=== PATIENT | female | born 1970 | race Caucasian/White ===

== ENCOUNTER 2018-05-30 06:39 | Observation (INO) ==
[2018-05-30] MEDS ORDERED: NS 1,000 ML IV ONE (07:30)
[2018-05-30] MEDS ORDERED: DILAUDID IV ONE ×2 (07:30→08:27)
[2018-05-30] MEDS ORDERED: ZOFRAN IV ONE (07:31)
[2018-05-30 07:33] LABS: URINE SOURCE CLEAN CATCH
[2018-05-30 07:42] LABS: BASO# 0.02 X1000 (0.0-0.2); BASO% 0.2 % (0.0-0.8); EOS# 0.07 X1000 (0.0-0.7); EOS% 0.5 % (0.0-10.0); HEMATOCRIT 38.5 % (37.0-47.0); HEMOGLOBIN 12.5 g/dL (12.0-16.0); IMM GRAN# 0.03 X1000 (0.0-0.04); IMM GRAN% 0.2 % (0.0-0.5); LYMPH% 13.3 % (20.5-51.1); MCH 26.1 PG (27-31); MCHC 32.5 g/dL (33-37); MCV 80.4 FL (81-99); MONO# 0.91 X1000 (0.11-0.59); MONO% 7.1 % (1.7-9.3); MPV 9.3 FL (7.4-10.4); NEUT# 10.01 X1000 (1.4-6.5); NEUT% 78.7 % (42.2-75.2); PLT 401 X1000 (130-400); RBC 4.79 XMIL (4.2-5.4); RDW 13.9 % (11.5-14.5); WBC 12.74 X1000 (4.8-10.8)
[2018-05-30 07:43] LABS: BILIRUBIN URINE NEGATIVE (NEGATIVE); BLOOD URINE MODERATE (NEGATIVE); COLOR YELLOW; GLUCOSE URINE 100 mg/dL (NEGATIVE); KETONE URINE 40 mg/dL (NEGATIVE); LEUKOCYTES URINE NEGATIVE (NEGATIVE); NITRITE URINE NEGATIVE (NEGATIVE); PROTEIN URINE 100 mg/dL (NEGATIVE); SP GRAVITY URINE 1.036; TURBIDITY URINE TURBID (CLEAR); UROBILINOGEN URINE NORMAL (NORMAL)
[2018-05-30 07:50] LABS: AGAP 15; ALB/GLOB RATIO 1.4; ALBUMIN 4.2 g/dL (3.5-5.0); ALKALINE PHOSPHATASE 70 U/L (32-104); BUN 11 mg/dL (8-22); CALCIUM 9.2 mg/dL (8.8-10.2); CHLORIDE 93 mmol/L (98-107); COSMO 280; CREATININE 0.8 mg/dL (0.5-0.9); ESTIMATED GFR > 60; GLUCOSE 218 mg/dL (70-104); GOT 27 U/L (10-30); GPT 25 U/L (10-36); POTASSIUM 3.5 mmol/L (3.5-5.1); SODIUM 137 mmol/L (136-145); TCO2 29 mmol/L (25-35); TOTAL BILIRUBIN 0.46 mg/dL (0.20-1.00); TOTAL PROTEIN 7.2 g/dL (6.3-8.3)
[2018-05-30 08:00] LABS: UR EPITHELIAL CELLS >10 /HPF (<10); URINE BACTERIA NEGATIVE /HPF; URINE RBC TNTC /HPF (<10); URINE WBC <10 /HPF (<10)
[2018-05-30 08:01] LABS: URINE CRYSTALS CYSTINE PRESENT
[2018-05-30] MEDS ORDERED: DILAUDID ONE (08:24)
--- NOTE | 2018-05-30 08:47 | Diag Imaging Result Doc PS360 ---
CT ABD/PELVIS W/IV CONT ONLY - 05/30/2018 INDICATION: post lap daryn. abd pain, absent BS, distension COMPARISON: 04/12/2018 FINDINGS: There is some linear atelectasis in the lung bases. Heart size is normal with no pericardial effusion. There are cholecystectomy clips. No biliary dilation. There are some right renal cysts. The pancreas, spleen, and adrenals are normal. There is severe constipation primarily of the ascending colon. No bowel obstruction or inflammation. There is trace pelvic free fluid. There is an IUD in the uterus in good position. Urinary bladder and rectum are normal. Bones are intact. IMPRESSION: 1. Severe constipation. 2. Trace pelvic free fluid of doubtful significance. Otherwise no complicating features. This exam was performed using automated exposure control, adjustment of mA or kV according to patient size, and/or use of iterative reconstruction technique Electronically signed by Ronnie Veronica 05/30/2018 8:44 AM
[2018-05-30] MEDS ORDERED: DIPRIVAN 1% ONE (10:16)
[2018-05-30] MEDS ORDERED: XYLOCAINE-MPF 2% ONE (10:16)
[2018-05-30] MEDS ORDERED: QUELICIN (DOSE) ONE (10:16)
[2018-05-30] MEDS ORDERED: ROBINUL ONE ×2 (10:16→11:22)
[2018-05-30] MEDS ORDERED: KEFZOL 1 GM/D5W 1 GM/50 ML IVPB ONE (10:26)
[2018-05-30] MEDS ORDERED: OFIRMEV 1000 MG/ISOTONIC SOLN 1,000 MG/100 ML BOTTLE ONE (10:38)
[2018-05-30] MEDS ORDERED: TORADOL ONE (10:57)
[2018-05-30] MEDS ORDERED: ZOFRAN ONE (10:57)
[2018-05-30] MEDS ORDERED: DECADRON ONE (10:57)
[2018-05-30] MEDS ORDERED: PHENERGAN ONE (10:58)
--- NOTE | 2018-05-30 11:13 | PROVIDER DOCUMENTATION ---
This chart was entered by Alethea Coy Scribe, acting as scribe for Jose Francisco Ortiz MD. HPI-General Adult - General Chief Complaint: Post Op Complaint Stated Complaint: POST OP COMPLAINT,NAUSEA,VOMITING Time Seen by Provider: 05/30/18 07:17 Source: patient Allergies/Adverse Reactions: Patient Allergies Allergy/AdvReac Type Severity Reaction Status Date / Time No Known Allergies Allergy Verified 05/26/18 15:35 Home Medications: Home Medication List Medication Instructions Recorded Confirmed Last Taken Type Bisoprolol Fumarate/Hctz 1 each PO DAILY 12/17/16 05/28/18 05/28/18 05:00 History [Bisoprolol-Hctz 2.5-6.25 mg Tb] Cetirizine HCl [Zyrtec] 10 mg PO DAILY 12/17/16 05/28/18 05/27/18 07:30 History Escitalopram Oxalate [Lexapro] 10 mg PO DAILY 12/17/16 05/28/18 05/27/18 07:00 History Omeprazole 40 mg PO DAILY 12/17/16 05/28/18 05/27/18 07:00 History Atorvastatin Calcium [Lipitor] 10 mg PO QHS 05/26/18 05/28/18 05/27/18 21:00 History Ergocalciferol (Vitamin D2) 50,000 unit PO Q7D 05/26/18 05/28/18 05/21/18 07:00 History [Vitamin D2] Levothyroxine Sodium [Synthroid] 50 mcg PO DAILY 05/26/18 05/28/18 05/28/18 05:00 History Lisinopril 2.5 mg PO DAILY 05/26/18 05/28/18 05/27/18 07:00 History Montelukast [Singulair] 10 mg PO DAILY 05/26/18 05/28/18 05/27/18 22:00 History Sitagliptin Phos/Metformin HCl 1 tab PO BID 05/26/18 05/28/18 05/27/18 22:00 History [Janumet Xr 50-1,000 mg Tablet] Hydrocodone/APAP 10 mg/325 mg 1 ea PO Q6H PRN PRN #15 tab 05/28/18 Unknown Rx [[place]-10] - History of Present Illness -Gen Adult Nature of Presenting Problems: 47yof c/o post-op complaint related to cholecystectomy on 05/28/18. She c/o abdominal pain, nausea, vomiting, and no bowel movement since her procedure on 05/28/18. She reports she can drink fluids, but cannot eat solid foods. She reports she has previously had a , thyroid removal, tonsillectomy. She denies diarrhea and sob. The patient's is at bedside. Location of Pain/Injury: reports: abdomen Pain Radiation: reports: no radiation Quality of Pain: reports: other ("pain") Severity: reports: moderate Onset/Duration: reports: 2 days ago Timing: reports: still present, intermittent, constant Context/Activities at Onset: reports: other (post-cholecystectomy) Modifying Factors: improves with: nothing Associated Symptoms: reports: nausea, vomiting. denies: diarrhea, shortness of breath Similar Symptoms Previously?: No Recently seen or treated by another doctor?: No Review of Systems - Adult - REVIEW OF SYSTEMS - ADULT Constitutional: denies: chills, fever Eyes: denies: discharge, dry eyes Ears, Nose, Mouth & Throat: denies: ear discharge, ear pain Cardiovascular: denies: chest pain, palpitations Respiratory: denies: cough, shortness of breath Gastrointestinal: reports: abdominal pain, nausea, vomiting, other (absence of bowel movement). denies: diarrhea Genitourinary: denies: dysuria, hematuria Musculoskeletal: denies: back pain, neck pain Integumentary: reports: no symptoms reported Neurological: denies: dizziness/vertigo, headache/migraines Psychiatric: reports: no symptoms reported Endocrine: reports: no symptoms reported Hematologic/Lymphatic: reports: no symptoms reported Allergic/Immunologic: reports: no symptoms reported All Other Systems: Reviewed and Negative Past History - Adult - PAST MEDICAL HISTORY-ADULT Review of Records: reports: Old Records Reviewed, Nursing Assessment Review, Medications Reviewed Major Childhood Illnesses: reports: denies history Cardiovascular: reports: HTN Genitourinary: reports: kidney disease Endocrine/Immune: reports: Diabetes, thyroid disorder - PRIOR SURGERIES/PROCEDURES Surgical/Procedure History: reports: cholecystectomy, , tonsillectomy, other (thyroidectomy) - IMMUNIZATION STATUS Childhood Immunizations: See Nurse Assessment Flu Vaccine: See Nurse Assessment - FAMILY HISTORY Family History: reviewed, not pertinent - SOCIAL HISTORY Smoking: other (former) Substance Use: denies Living Situation: family Physical Exam-General - PHYSICAL EXAM-ADULT Exam Limited by: obesity Initial Vital Signs Reviewed: Yes - CONSTITUTIONAL General Appearance: alert, moderate distress, obese - EYES Eyes: PERRL/EOMI, pink conjunctivae - NECK Neck: non-tender, supple - RESPIRATORY Respiratory: chest non-tender, lungs clear, normal breath sounds, no pleuratic chest pain, no respiratory distress, no accessory muscle use - CARDIOVASCULAR Cardiovascular: regular rate, rhythm, no murmur - GASTROINTESTINAL (ABDOMEN) Abdominal Exam: distended, tenderness (diffuse), other (no bowel sounds) - MUSCULOSKELETAL Extremity: normal range of motion, non-tender, normal inspection, no pedal edema - SKIN Integumentary: normal color, warm/dry - NEUROLOGIC Neurologic: grossly normal, no motor/sensory deficits - PSYCHIATRIC Psych/Mental Status: normal mood/affect, normal thought content, normal thought process, oriented x 3 Progress - PLAN OF CARE/RESULTS Progress/Plan/Lab Results: Vital Signs - 8 hr 05/30/18 06:42 Temperature 98.2 F Pulse Rate 95 H Respiratory Rate 24 Blood Pressure 160/94 O2 Sat by Pulse Oximetry 93 L Bedside Urine ED: Urine Bedside Start: 05/30/18 07:04 Freq: Status: Active Protocol: Activity Type Activity Date Activity User E-Sign Co-Sign Detail Recorded Client Recorded Date Recorded By Document 05/30/18 07:04 [id number] 05/30/18 07:07 [id number] 05/30/18 07:04 Point of Care [Bedside Point of Care] -Lot # [id number] - Results Negative -Control Line Visible? Yes -Additional Comment exp 2019-09-13 Result Diagrams: 05/30/18 07:17 05/30/18 07:17 - CT/MRI 1 CT Study: Abdomen, Pelvis Impression: Abnormal (FINDINGS: There is some linear atelectasis in the lung bases. Heart size is normal with no pericardial effusion. There are cholecystectomy clips. No biliary dilation. There are some right renal cysts. The pancreas, spleen, and adrenals are normal. There is severe constipation primarily of the ascending colon. No bowel obstruction or inflammation. There is trace pelvic free fluid. There is an IUD in the uterus in good position. Urinary bladder and rectum are normal. Bones are intact. IMPRESSION: 1. Severe constipation. 2. Trace pelvic free fluid of doubtful significance. Otherwise no complicating features.) - CONSULTS/PCP/HOSPITALIST Notification #1 *Consult/PCP/Hospitalist*: Dr. Law Time Discussed: 10:08 Consult Disposition: other (admitted to surgery) Departure - Departure Date of Disposition Decision: 05/30/18 Time of Disposition Decision: 11:08 DIAGNOSIS: Acute abdomen Disposition: ADMITTED INPATIENT 09 Certified Medical Emergency: Emergent Condition: Stable Referrals and Follow-Ups: Gini Estevez MD [Primary Care Provider] - - Critical Care Note This patient required my direct & personal management of CC.: No Attestation - Physician/ DIANNE Attestation Patient care was provided by Advanced Practice Provider:: No The physician spent face to face time with patient:: Yes Advanced Practice Provider documentation review:: Supervising physician onsite and consulted in the evaluation and care of this patient. The physician did have a face to face encounter with the patient. This chart was documented by the indicated scribe, (Alethea Coy Scribe) and accurately reflects the services I performed and decisions made by me, Jose Francisco Ortiz MD, as attested by the provider's signature.
[2018-05-30] MEDS ORDERED: NEOSTIGMINE ONE (11:22)
[2018-05-30] MEDS ORDERED: DEMEROL ONE (11:55)
[2018-05-30 12:06] LABS: URINE SOURCE CATH
[2018-05-30] MEDS ORDERED: D5 1/2 NS + KCL 20 MEQ 1,000 ML ONE (12:19)
[2018-05-30 12:32] LABS: BILIRUBIN URINE NEGATIVE (NEGATIVE); BLOOD URINE NEGATIVE (NEGATIVE); COLOR YELLOW; GLUCOSE URINE 100 mg/dL (NEGATIVE); KETONE URINE 20 mg/dL (NEGATIVE); LEUKOCYTES URINE NEGATIVE (NEGATIVE); NITRITE URINE NEGATIVE (NEGATIVE); PH URINE 6.5; PROTEIN URINE NEGATIVE (NEGATIVE); SP GRAVITY URINE 1.022; TURBIDITY URINE CLEAR (CLEAR); UROBILINOGEN URINE NORMAL (NORMAL)
[2018-05-30 12:33] LABS: UR EPITHELIAL CELLS <10 /HPF (<10); URINE BACTERIA NEGATIVE /HPF; URINE RBC <10 /HPF (<10); URINE WBC <10 /HPF (<10)
[2018-05-30] MEDS ORDERED: MORPHINE IV PRN (12:54)
--- NOTE | 2018-05-30 13:03 | OPERATIVE NOTE ---
PROCEDURE DATE: 05/30/2018 PREOPERATIVE DIAGNOSES: 1. Acute abdomen. 2. Postoperative day 2, laparoscopic cholecystectomy. POSTOPERATIVE DIAGNOSIS: Intra-abdominal bile leak. PRINCIPLE PROCEDURES: Diagnostic laparoscopy with placement of drains right upper quadrant of abdomen. SURGEON: Juana Law MD. ANESTHESIA: General. ESTIMATED BLOOD LOSS: 25 mL. DRAINS: Two #10 flat Sammy-Ruth drain, drain one in the gallbladder fossa and one along the lateral side of the right lobe of the liver. INDICATIONS: Ms. Judi Del Rio is a 47-year-old, white female patient of Dr. Petr Desouza. On Thursday, she underwent a laparoscopic cholecystectomy and was discharged home. An intraoperative cholangiogram was performed at the time of her cholecystectomy and was normal. She presented to our Emergency Department this morning with acute abdomen. Actually her liver function tests were normal, as were her electrolytes. She had a slightly elevated white blood cell count. A CT scan was read as normal, but it was clear that she had an acute abdomen. Diagnostic laparoscopy was recommended. FINDINGS: She had an intra-abdominal bile leak with bile along the right lobe of the liver, in the left upper quadrant of the abdomen and some within the pelvis. No other intra-abdominal pathology or injury was noted. DESCRIPTION OF OPERATION: The patient was brought to the operating room, placed supine, received general anesthesia, was intubated. Her abdomen was prepped and draped within the sterile field. We began the procedure by reopening the 10-mm trocar site just below the umbilicus with a 11-blade scalpel. I used a Veress needle to gain access intra-abdominally and pneumoperitoneum was established. The Veress needle was removed and I placed an 11-mm trocar through this incision into the abdomen. The camera was placed through this port, and the abdomen was explored for injury, there was none. We noted that she had bile intra-abdominally. I placed 3 other trocars. I placed a 10-mm trocar just to the right of the midline and two 5-mm trocars in our midclavicular and anterior axillary lines under direct vision of the camera. I used a grasper and a suction dry cans operator to suck out all the bile and irrigate the area of the gallbladder fossa right lobe of the liver, left upper quadrant of the abdomen and the pelvis. We did position the patient to help us gain exposure to these areas and removed as much bile using suction as possible. We also irrigated these areas and removed the irrigation. I then placed two 10-flat Sammy-Ruth drains, and they were brought out through my 5-mm trocar sites. The most lateral one was placed along the right lobe of the liver and the more medial one was placed in the gallbladder fossa under direct vision of our camera. I secured these #10 flat Sammy-Ruth drains to the skin with 2-0 nylon stitches. They were then hooked to bulb suction. We allowed the pneumoperitoneum to dissipate. I used several [id number] 2-0 Vicryl stitches to reapproximate the fascia below the umbilicus. All skin was closed with 4-0 Monocryl subcuticular stitches. Steri-Strips were applied. She did have a Haro catheter placed prior to surgery. We will leave that in. We did not use an NG tube. She now has 2 NIK drains to bulb suction. She will go to the recovery room and then be hospitalized. cc: Juana Law MD
[2018-05-30] MEDS: NORCO-10 PO PRN ×2 (16:54→23:03)
[2018-05-30] MEDS: ZOSYN 3.375 GM in NS 50 ML IV SCH ×2 (16:54→21:30)
[2018-05-30] MEDS: PHENERGAN IV PRN ×2 (16:54→23:05)
[2018-05-30] MEDS: SODIUM CHLORIDE 0.9% INJ PRN (16:55)
[2018-05-30] MEDS: D5 1/2 NS + KCL 20 MEQ 1,000 ML IV SCH (20:03)
[2018-05-30] MEDS: COLACE PO SCH (21:31)
[2018-05-30] MEDS: PERIDEX MT SCH (21:31)
[2018-05-31] MEDS: D5 1/2 NS + KCL 20 MEQ 1,000 ML IV SCH ×2 (02:05→14:38)
[2018-05-31] MEDS: NORCO-10 PO PRN ×4 (05:12→23:02)
[2018-05-31] MEDS: PHENERGAN IV PRN ×4 (05:12→23:02)
[2018-05-31] MEDS: ZOSYN 3.375 GM in NS 50 ML IV SCH ×4 (05:13→23:02)
[2018-05-31] MEDS: LOVENOX SUBQ SCH (05:13)
[2018-05-31] MEDS: COLACE PO SCH ×2 (08:59→23:02)
[2018-05-31] MEDS: PERIDEX MT SCH ×2 (09:00→23:02)
[2018-05-31] MEDS: SODIUM CHLORIDE 0.9% INJ PRN ×2 (10:54→17:18)
--- NOTE | 2018-05-31 18:54 | PROGRESS NOTE ---
DATE: 05/31/2018 SUBJECTIVE: Ms. Del Rio is now postop day 1 from a diagnostic laparoscopy and placement of drains for a bile leak, postoperative day 2 from a laparoscopic cholecystectomy. OBJECTIVE: She is much more comfortable this morning. She has only a little bit of bile out of her drains, mostly serous fluid. She is tolerating liquids. VITAL SIGNS: Her heart rate 67, blood pressure 157/84, O2 saturation 94%. She is afebrile. She is on IV Zosyn prophylactically. PLAN: We will leave her Sammy-Ruth drains in place. We will advance her diet. We will make sure that her Haro comes out and increase her activity. It seems like her bile leak is quite small and that she may not need ERCP to seal it. cc: Juana Law MD
[2018-05-31] MEDS ORDERED: METFORMIN HCL PO SCH (21:00)
[2018-05-31] MEDS ORDERED: [UNRECOGNIZED DRUG - OTHER] PO SCH (21:00)
[2018-05-31] MEDS ORDERED: SITAGLIPTIN PHOS PO SCH (21:00)
[2018-05-31] MEDS: LIPITOR PO SCH (23:01)
[2018-05-31] MEDS: GLUCOPHAGE XR PO SCH (23:02)
[2018-05-31] MEDS: JANUVIA PO SCH (23:02)
[2018-06-01] MEDS: ZOSYN 3.375 GM in NS 50 ML IV SCH ×4 (03:41→21:50)
[2018-06-01] MEDS: D5 1/2 NS + KCL 20 MEQ 1,000 ML IV SCH ×3 (03:46→17:44)
[2018-06-01] MEDS: NORCO-10 PO PRN ×3 (05:22→18:14)
[2018-06-01] MEDS: PHENERGAN IV PRN ×3 (05:22→18:14)
[2018-06-01] MEDS: PRILOSEC PO SCH (06:41)
[2018-06-01] MEDS: LOVENOX SUBQ SCH (06:42)
[2018-06-01] MEDS: SYNTHROID PO SCH (06:42)
[2018-06-01] MEDS: GLUCOPHAGE XR PO SCH ×2 (10:24→21:50)
[2018-06-01] MEDS: COLACE PO SCH ×2 (10:24→21:50)
[2018-06-01] MEDS: JANUVIA PO SCH ×2 (10:25→21:49)
[2018-06-01] MEDS: ZIAC 2.5/6.25 MG PO SCH (10:26)
[2018-06-01] MEDS: PRINIVIL PO SCH (10:26)
[2018-06-01] MEDS: LEXAPRO PO SCH (10:28)
[2018-06-01] MEDS: PERIDEX MT SCH ×2 (10:28→21:49)
[2018-06-01] MEDS: ZYRTEC PO SCH (10:29)
[2018-06-01] MEDS: SINGULAIR PO SCH (10:29)
--- NOTE | 2018-06-01 10:37 | PROGRESS NOTE ---
DATE: 06/01/2018 SUBJECTIVE: Ms. Del Rio is now postoperative day 4 from a laparoscopic cholecystectomy per Dr. Desouza. On Thursday, I had to take her back to the operating room and drain the bile leak. She has [address] and they do not seem to be draining much bile. There is some serous fluid that is draining; however, this morning, she seems to be more uncomfortable. We did remove her Haro catheter tube. We have advanced her diet to a heart healthy diet. We restarted her home medications. We continue to have her on IV Zosyn prophylactically. OBJECTIVE: Vitals: Her heart rate is 83, blood pressure 146/75, O2 saturation 94%. She is afebrile. She has not had recent labs. ASSESSMENT AND PLAN: We will continue her NIK drains to bulb suction. We will increase her activity. We will continue IV fluids, and see how she takes her diet. We may check some more blood counts tomorrow. cc: Juana Law MD
[2018-06-01] MEDS: SODIUM CHLORIDE 0.9% INJ PRN (11:28)
[2018-06-01] MEDS: LIPITOR PO SCH (21:50)
[2018-06-02] MEDS: PHENERGAN IV PRN ×2 (00:45→07:53)
[2018-06-02] MEDS: SODIUM CHLORIDE 0.9% INJ PRN (00:45)
[2018-06-02] MEDS: NORCO-10 PO PRN ×2 (00:45→07:53)
[2018-06-02] MEDS: ZOSYN 3.375 GM in NS 50 ML IV SCH (04:09)
[2018-06-02] MEDS: LOVENOX SUBQ SCH (06:19)
[2018-06-02] MEDS: PRILOSEC PO SCH (06:19)
[2018-06-02] MEDS: SYNTHROID PO SCH (06:19)
[2018-06-02 07:02] LABS: BASO# 0.02 X1000 (0.0-0.2); BASO% 0.2 % (0.0-0.8); EOS# 0.24 X1000 (0.0-0.7); EOS% 2.3 % (0.0-10.0); HEMATOCRIT 35.1 % (37.0-47.0); HEMOGLOBIN 11.1 g/dL (12.0-16.0); LYMPH# 2.06 X1000 (1.2-3.4); LYMPH% 19.8 % (20.5-51.1); MCH 26.1 PG (27-31); MCHC 31.6 g/dL (33-37); MCV 82.6 FL (81-99); MONO# 0.61 X1000 (0.11-0.59); MONO% 5.9 % (1.7-9.3); MPV 9.2 FL (7.4-10.4); NEUT# 7.47 X1000 (1.4-6.5); NEUT% 71.8 % (42.2-75.2); PLT 362 X1000 (130-400); RBC 4.25 XMIL (4.2-5.4)
[2018-06-02 07:22] LABS: AGAP 12; ALB/GLOB RATIO 1.2; ALBUMIN 3.3 g/dL (3.5-5.0); ALKALINE PHOSPHATASE 62 U/L (32-104); BUN 11 mg/dL (8-22); CALCIUM 8.4 mg/dL (8.8-10.2); CHLORIDE 97 mmol/L (98-107); COSMO 280; CREATININE 0.8 mg/dL (0.5-0.9); ESTIMATED GFR > 60; GLUCOSE 152 mg/dL (70-104); GOT 13 U/L (10-30); GPT 16 U/L (10-36); POTASSIUM 3.8 mmol/L (3.5-5.1); SODIUM 139 mmol/L (136-145); TCO2 30 mmol/L (25-35); TOTAL BILIRUBIN 0.42 mg/dL (0.20-1.00)
[2018-06-02 07:51] VITALS: BP 135/82
[2018-06-02] MEDS: SINGULAIR PO SCH (08:02)
[2018-06-02] MEDS: PRINIVIL PO SCH (08:02)
[2018-06-02] MEDS: COLACE PO SCH (08:03)
[2018-06-02] MEDS: ZYRTEC PO SCH (08:03)
[2018-06-02] MEDS: PERIDEX MT SCH (08:03)
[2018-06-02] MEDS: JANUVIA PO SCH (08:03)
[2018-06-02] MEDS: GLUCOPHAGE XR PO SCH (08:03)
[2018-06-02] MEDS: LEXAPRO PO SCH (08:03)
[2018-06-02] MEDS: ZIAC 2.5/6.25 MG PO SCH (08:04)
--- NOTE | 2018-06-02 09:50 | DISCHARGE SUMMARY ---
ADMISSION DATE: 05/30/2018 DISCHARGE DATE: 06/02/2018 ADMITTING DIAGNOSIS: Acute abdomen, postoperative day 2 laparoscopic cholecystectomy. DISCHARGE DIAGNOSIS: Bile leak, status post laparoscopic cholecystectomy. PRINCIPAL PROCEDURES: Diagnostic laparoscopy with drainage of bile on 05/30/2018. DISCHARGE DISABILITY: Full. DISCHARGE DIET: Heart healthy diet. DISCHARGE MEDICATIONS: She is to return to her home medications. I wrote her pain medicine and Phenergan for nausea. DISCHARGE DISPOSITION: She is to return to see Dr. Desouza this coming Thursday. She has a NIK drain in place. HOSPITAL COURSE: Ms. Judi Del Rio is a 47-year-old overweight white female, patient of Dr. Petr Desouza, who last Thursday underwent a laparoscopic cholecystectomy for GI symptoms. She did have a cholangiogram at the time of surgery, which was essentially normal. 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 A CT scan was performed and was read as essentially normal, but because of her symptoms and abdominal pain, she was taken to the operating room where she underwent a diagnostic laparoscopy and it was noted that she had a bile leak. At the time of surgery, I placed 2 NIK drains and after surgery, she went to the recovery room and then was hospitalized on the [address] [place] [id number] [place]. The NIK drains were able to control what was felt to be a small bile leak. We slowly advanced her diet and as we advanced her diet, her bile leak increased slightly. It was felt safe to discharge her to her home with a 1 NIK. I removed 1 NIK drain prior to her discharge. She still has [address] that is draining bile and it is draining about 100 mL a day. We have chosen not to involve Gastroenterology and placement of a stent because we felt this bile leak may seal on its own. She was placed on IV Zosyn prophylactically. Her white blood cell count at discharge was 10, hematocrit is 35%, electrolytes were within normal limits, BUN of 11, creatinine of 0.8. Liver function tests were essentially normal. She will be taught NIK drain care, and we will discharge her home today, 06/02/2018, with follow-up in our outpatient offices this coming Thursday. She knows to contact us with any problems with her drain or increasing abdominal pain. She is going to be discharged home under the care of her mother, her is out of town. cc: Juana Law MD
== END 2018-06-02 11:23 | disposition home or self-care (01) ==
LOC: ED 06:39 → 4N 06:39
PROVIDERS: ADMIT Surgery; ATTEND Surgery
CPT/HCPCS: 74177; 80053; 81001; 81025; 82150; 82948; 85025; 87040; 94761; 94799; 96365; 96366; 96372; 96374; 96375; 96376; 99285; A9270; G0378; J0131; J0330; J0690; J1100; J1170; J1650; J1885; J2175; J2405; J2543; J2550; J3480; J7030; Q9967; XXXXX

== ENCOUNTER 2018-12-10 05:09 | Inpatient (IN) ==
[2018-12-10] MEDS ORDERED: NS 1,000 ML IV ONE (05:25)
[2018-12-10] MEDS ORDERED: TORADOL IV ONE (05:25)
[2018-12-10] MEDS ORDERED: ZOFRAN IV ONE (05:29)
--- NOTE | 2018-12-10 05:34 | PROVIDER DOCUMENTATION ---
HPI-Abdominal Pain/GI Problem - General Chief Complaint: Flank Pain Stated Complaint: ABD PAIN Time Seen by Provider: 12/10/18 05:26 Source: patient Allergies/Adverse Reactions: Patient Allergies Allergy/AdvReac Type Severity Reaction Status Date / Time No Known Allergies Allergy Verified 05/26/18 15:35 Home Medications: Home Medication List Medication Instructions Recorded Confirmed Last Taken Type Bisoprolol Fumarate/Hctz 1 each PO DAILY 12/17/16 12/10/18 12/09/18 History [Bisoprolol-Hctz 2.5-6.25 mg Tb] Cetirizine HCl [Zyrtec] 10 mg PO DAILY 12/17/16 12/10/18 12/09/18 History Escitalopram Oxalate [Lexapro] 10 mg PO DAILY 12/17/16 12/10/18 12/09/18 History Omeprazole 40 mg PO DAILY 12/17/16 12/10/18 12/09/18 History Atorvastatin Calcium [Lipitor] 10 mg PO QHS 05/26/18 12/10/18 12/09/18 History Levothyroxine Sodium [Synthroid] 50 mcg PO DAILY 05/26/18 12/10/18 12/09/18 History Lisinopril 2.5 mg PO DAILY 05/26/18 12/10/18 12/09/18 History Montelukast [Singulair] 10 mg PO DAILY 05/26/18 12/10/18 12/09/18 History Sitagliptin Phos/Metformin HCl 1 tab PO BID 05/30/18 12/10/18 12/09/18 History [Janumet Xr 50-1,000 mg Tablet] Ergocalciferol (Vitamin D2) 1.25 mg PO Q7D 12/10/18 12/10/18 Unknown History [Drisdol] - History of Present Illness-ABD Nature of Presenting Problems: 48 y/o WF with hx of chronic kidney stones c/o rt flank pain that started last night. She notes that she has had several episodes of vomiting secondary to the flank pain. Abdominal Pain Onset Location: reports: flank (rt sided) Pain Radiation: reports: groin Quality of Pain: reports: aching, sharp Severity in ED: reports: moderate Onset/Duration: reports: 4-6 hours ago Timing: reports: still present Activities at Onset: reports: rest Exposure to sick contacts?: No Modifying Factors: improves with: nothing Associated Symptoms: reports: nausea, vomiting Last BM: 24 hours ago Dark Stools Present?: reports: none noticed Rectal Bleeding: reports: none # of Diarrhea Episodes: 0 Rectal Pain: reports: none # of Vomiting Episodes: 3 Emesis Description: reports: none Bruising or Bleeding Gums?: No Similar Symptoms Previously?: Yes Recently seen or treated by another doctor?: No Review of Systems - Adult - REVIEW OF SYSTEMS - ADULT Constitutional: reports: no symptoms reported, see HPI Eyes: reports: no symptoms reported, see HPI Ears, Nose, Mouth & Throat: reports: no symptoms reported, see HPI Cardiovascular: reports: no symptoms reported, see HPI Respiratory: reports: no symptoms reported, see HPI Gastrointestinal: reports: see HPI, abdominal pain Genitourinary: reports: no symptoms reported, see HPI Musculoskeletal: reports: no symptoms reported, see HPI Integumentary: reports: no symptoms reported, see HPI Neurological: reports: no symptoms reported, see HPI Psychiatric: reports: no symptoms reported, see HPI Endocrine: reports: no symptoms reported, see HPI Hematologic/Lymphatic: reports: no symptoms reported, see HPI Allergic/Immunologic: reports: no symptoms reported, see HPI All Other Systems: Reviewed and Negative Past History - Adult - PAST MEDICAL HISTORY-ADULT Review of Records: reports: Nursing Assessment Review, Medications Reviewed, Social history reviewed & non-contributory. Major Childhood Illnesses: reports: denies history Cardiovascular: reports: HTN Genitourinary: reports: kidney disease Endocrine/Immune: reports: Diabetes, thyroid disorder - PRIOR SURGERIES/PROCEDURES Surgical/Procedure History: reports: cholecystectomy, , tonsillectomy, other (thyroidectomy) - IMMUNIZATION STATUS Childhood Immunizations: See Nurse Assessment Flu Vaccine: See Nurse Assessment - FAMILY HISTORY Family History: reviewed, not pertinent Physical Exam-General - PHYSICAL EXAM-ADULT Initial Vital Signs Reviewed: Yes - CONSTITUTIONAL General Appearance: alert, mild distress - EYES Eyes: PERRL/EOMI - HEAD, EARS, NOSE, MOUTH & THROAT HENMT: normocephalic/atraumatic, moist mucous membranes - NECK Neck: non-tender, full range of motion, supple, normal inspection - RESPIRATORY Respiratory: chest non-tender, lungs clear, normal breath sounds, no pleuratic chest pain, no respiratory distress, no accessory muscle use - CARDIOVASCULAR Cardiovascular: normal peripheral pulses, regular rate, rhythm, no edema, no gallop, no JVD, no murmur - GASTROINTESTINAL (ABDOMEN) Abdominal Exam: normal bowel sounds, soft, no organomegaly, no pulsatile mass, tenderness (rt flank) - LYMPHATIC Lymphatic: no adenopathy - MUSCULOSKELETAL Back Exam: CVA tenderness (rt flank pain) Extremity: normal range of motion, non-tender, normal gait, normal inspection, no pedal edema, no calf tenderness, normal capillary refill - SKIN Integumentary: normal color, normal turgor - NEUROLOGIC Neurologic: processing associate II-XII nml as tested, grossly normal, no motor/sensory deficits - PSYCHIATRIC Psych/Mental Status: normal mood/affect, normal thought content, normal thought process, oriented x 3 Progress - PLAN OF CARE/RESULTS Progress/Plan/Lab Results: Vital Signs - 8 hr 12/10/18 05:13 Temperature 97.9 F Pulse Rate 90 Respiratory Rate 16 Blood Pressure 166/102 O2 Sat by Pulse Oximetry 98 Orders Category Date Time Status ED: Urine Bedside ORDERED Care 12/10/18 05:[address] ABDOMEN/PELVIS W/O CONTRAST [CT] Stat Exams 12/10/18 05:24 Ordered URINALYSIS W/POSS RFLX CULT [URINALYSIS] Stat Lab 12/10/18 05:24 Uncollected 0.9% Sodium Chloride Inj [Ns] 1,000 ml Med 12/10/18 05:25 Active IV 999 mls/hr Ketorolac [Toradol] Med 12/10/18 05:25 Discontinued 15 mg IV NOW ONE Ondansetron [Zofran] Med 12/10/18 05:29 Once 4 mg IV NOW ONE At recheck, pt notes pain greatly improved. Agrees with admission. - REASSESSMENT Reassessment #1 Time Reassessed: 07:30 Status: unchanged (pt w/ very large kidney stone evaluated earlier by Dr. Karimi (awaiting Hospitalist to admit): Dr. Kang already spoke w/ Dr. Ross who req'd NPO to go to OR later today. will page Hospitalist again to admit.) - CT/MRI 1 CT Study: Abdomen, Pelvis Impression: Abnormal, See EMR Report ([facility] - [address] , [address], [place] [address] [place] [address] Department of Imaging Patient: JOSE FREED Date: 12/10/18#: [id number] : 1970ADM Status: REG ERAcct#: [id number] Age/Sex: 48/FRoom/Bed: Loc: ED Ordering Physician: Jose Karimi MD Family Physician: Gini Estevez MD Reason for Procedure: flank pain Signed EXAM: CT ABDOMEN/PELVIS W/O CONTRAST HISTORY: flank pain TECHNIQUE: CT abdomen and pelvis without contrast COMPARISON: 05/30/2018 FINDINGS: The gallbladder has been removed. No focal hepatic abnormality identified on this noncontrasted exam. The spleen measures 13.5 cm in AP diameter. No inflammation about the pancreas. Normal adrenal glands. No left renal stone or left-sided hydronephrosis. There are multiple stones in the distal right ureter extending to the ureterovesical junction. The largest stone is at the ureterovesical junction measuring 8 x 11 x 14 mm. There are at least three stones in the distal ureter. Prominent right- sided hydronephrosis. There are perinephric inflammatory changes. Cortical calcification in the mid right kidney. Normal aorta. No inflammation about the cecum. No bowel obstruction. There is a contraceptive device within the uterus. Urinary bladder is only mildly distended. Neither ovary is enlarged. Trace pelvic fluid. IMPRESSION: Interval development of right-sided hydronephrosis with at least three stones at the ureterovesical junction. This exam was performed using automated exposure control, adjustment of mA or kV according to patient size, and/or use of iterative reconstruction technique. Electronically signed by Dieudonne Pandey 12/10/2018 6:15 AM 12/10/1815 Interpreting P krystinacian: Dieudonne Pandey MD Dictated Date/Time: 12/10/18610 cc: Jose Karimi MD; Gini Estevez MD) - CONSULTS/PCP/HOSPITALIST Notification #1 *Consult/PCP/Hospitalist*: Hospitalist paged at [phone] Time Discussed: 06:45 #2 Consult: Dr Ross Time Discussed: 06:48 Consult Disposition: other (asked for hospitalist to admit and for pt to stay NPO.) #3 Consult: Lauren (Hospitalist) Time Discussed: 08:04 Consult Disposition: Admit - CHANGE OF SHIFT REPORT (ED Provider) 1 Report Given and Care Transferred to:: Dr Paredes Time of Transfer: 07:00 Items Pending: Physician Consult/Arrival (hospitalist acceptance.) Departure - Departure Date of Disposition Decision: 12/10/18 Time of Disposition Decision: 08:04 DIAGNOSIS: Ureterolithiasis Disposition: ADMITTED INPATIENT 09 Certified Medical Emergency: Emergent Condition: Fair Referrals and Follow-Ups: Gini Estevez MD [Primary Care Provider] - - Critical Care Note This patient required my direct & personal management of CC.: No Attestation - Physician/ DIANNE Attestation Patient care was provided by Advanced Practice Provider:: No The physician spent face to face time with patient:: Yes Advanced Practice Provider documentation review:: Supervising physician onsite and consulted in the evaluation and care of this patient. The physician did have a face to face encounter with the patient.
[2018-12-10 06:07] LABS: URINE SOURCE CLEAN CATCH
[2018-12-10 06:10] LABS: BILIRUBIN URINE NEGATIVE (NEGATIVE); BLOOD URINE SMALL (NEGATIVE); COLOR STRAW; GLUCOSE URINE NEGATIVE (NEGATIVE); KETONE URINE NEGATIVE (NEGATIVE); LEUKOCYTES URINE NEGATIVE (NEGATIVE); NITRITE URINE NEGATIVE (NEGATIVE); PH URINE 6.5; PROTEIN URINE NEGATIVE (NEGATIVE); SP GRAVITY URINE 1.012; TURBIDITY URINE CLEAR (CLEAR); UROBILINOGEN URINE NORMAL (NORMAL)
[2018-12-10 06:11] LABS: UR EPITHELIAL CELLS <10 /HPF (<10); URINE BACTERIA NEGATIVE /HPF; URINE WBC <10 /HPF (<10)
--- NOTE | 2018-12-10 06:17 | Diag Imaging Result Doc PS360 ---
EXAM: CT ABDOMEN/PELVIS W/O CONTRAST HISTORY: flank pain TECHNIQUE: CT abdomen and pelvis without contrast COMPARISON: 05/30/2018 FINDINGS: The gallbladder has been removed. No focal hepatic abnormality identified on this noncontrasted exam. The spleen measures 13.5 cm in AP diameter. No inflammation about the pancreas. Normal adrenal glands. No left renal stone or left-sided hydronephrosis. There are multiple stones in the distal right ureter extending to the ureterovesical junction. The largest stone is at the ureterovesical junction measuring 8 x 11 x 14 mm. There are at least three stones in the distal ureter. Prominent right-sided hydronephrosis. There are perinephric inflammatory changes. Cortical calcification in the mid right kidney. Normal aorta. No inflammation about the cecum. No bowel obstruction. There is a contraceptive device within the uterus. Urinary bladder is only mildly distended. Neither ovary is enlarged. Trace pelvic fluid. IMPRESSION: Interval development of right-sided hydronephrosis with at least three stones at the ureterovesical junction. This exam was performed using automated exposure control, adjustment of mA or kV according to patient size, and/or use of iterative reconstruction technique. Electronically signed by Dieudonne Pandey 12/10/2018 6:15 AM
[2018-12-10] MEDS ORDERED: DILAUDID IV ONE (06:31)
[2018-12-10 09:28] LABS: BASO# 0.03 X1000 (0.0-0.2); BASO% 0.3 % (0.0-0.8); EOS# 0.24 X1000 (0.0-0.7); EOS% 2.2 % (0.0-10.0); HEMATOCRIT 36.9 % (37.0-47.0); HEMOGLOBIN 12.4 g/dL (12.0-16.0); LYMPH# 1.74 X1000 (1.2-3.4); LYMPH% 16.1 % (20.5-51.1); MCH 26.3 PG (27-31); MCHC 33.6 g/dL (33-37); MCV 78.2 FL (81-99); MONO# 0.73 X1000 (0.11-0.59); MONO% 6.7 % (1.7-9.3); NEUT# 8.08 X1000 (1.4-6.5); NEUT% 74.7 % (42.2-75.2); PLT 346 X1000 (130-400); RBC 4.72 XMIL (4.2-5.4); RDW 13.9 % (11.5-14.5); WBC 10.82 X1000 (4.8-10.8)
[2018-12-10 09:56] LABS: CALCIUM 8.8 mg/dL (8.8-10.2); POTASSIUM 3.4 mmol/L (3.5-5.1)
--- NOTE | 2018-12-10 09:57 | HISTORY AND PHYSICAL ---
PRIMARY CARE PHYSICIAN: Dr. Gini Estevez. CHIEF COMPLAINT: Right flank pain, several episodes of vomiting, all that began last night and progressively worsened. HISTORY OF PRESENTING ILLNESS: This is a 48-year-old female who presents to [facility] with complaints of right flank pain and several episodes of vomiting secondary to the flank pain that began last night and progressively worsened. States she has had a history of chronic kidney stones in the past. She described the pain as aching and sharp. Her workup showed a urinalysis that was negative. We did a CT of the abdomen and pelvis that showed an impression of an interval development of right-sided hydronephrosis with at least 3 stones at the ureterovesical junction. The ER physician contacted Urology, Dr. Ross, who stated that he would be to see her and she would have surgery today, so the patient will be admitted for further evaluation and treatment. PAST MEDICAL HISTORY: Chronic kidney stones, hypertension, diabetes type 2, hypothyroidism. PAST SURGICAL HISTORY: Cholecystectomy, , tonsillectomy and thyroidectomy. FAMILY HISTORY: Reviewed and noncontributory. SOCIAL HISTORY: She currently lives with family. Denies any tobacco, alcohol or illicit drug use. ALLERGIES: She has no known drug allergies. HOME MEDICATIONS: Will all be held due to her being NPO at this time. LABORATORY DATA: Urinalysis was negative. CT of the abdomen and pelvis showed an interval development of a right-sided hydronephrosis with at least 3 stones at the ureterovesical junction, and I have ordered a stat CBC and BMP that is pending at this time. REVIEW OF SYSTEMS: She denied any fever, chills, blurred vision, dizziness, chest pain, coughing, shortness of breath. She had right flank pain, nausea, vomiting. Denied any constipation, diarrhea, or burning or hurting with urination and no visible hematuria noted. PHYSICAL EXAMINATION: On arrival she had a temperature of 97.9 degrees, pulse 90, respirations 16, blood pressure 166/102, saturating 98% on room air. Currently, she has a blood pressure of 136/85. GENERAL: This is a 48-year-old female who is sitting up in the bed and answers questions appropriately. HEENT: Normocephalic, atraumatic. Normal ENT inspection. Oropharynx and nares are clear. EYES: Pupils are equal, round, and reactive to light and accommodation. Extraocular movements are intact. NECK: Normal inspection. Normal range of motion. LUNGS: Clear to auscultation bilaterally with equal lung expansion and chest wall movement. HEART: Regular rate and rhythm. No murmurs, rubs, or gallops. ABDOMEN: Soft. She has tenderness in the right flank area that radiates around to the suprapubic area. Bowel sounds are present x4 quadrants. MUSCULOSKELETAL: She has 5/5 strength x4 extremities. NEUROLOGICAL: The cranial nerves 2-12 appear grossly intact. ASSESSMENT: 1. Right multiple kidney stones at the UVJ and right hydronephrosis. 2. Hypertension. 3. Diabetes type 2. PLAN: She will be admitted to the surgical unit. Held NPO. We will consult Urology. Placed on normal saline 125 mL an hour. Dilaudid 1 mg IV q.3 hours p.r.n. We are going to check a CBC and a BMP now and then we will repeat in the a.m. Dilaudid 1 mg IV q.3 hours p.r.n., Zofran 4 mg IV q.4 hours p.r.n., hold her home medications at this time and further orders after seeing attending and technical sales consultant. Dictated by LAMAR Lilly for Nam Kimble MD cc: LAMAR Lilly MD Marlin D. Gill, MD I agree with the most components history, physical, assessment and plan. A separate addendum has been dictated. [facility] HOSPITALRachael
[2018-12-10] MEDS: ZOFRAN IV PRN ×3 (12:05→22:44)
[2018-12-10] MEDS: DILAUDID IV PRN ×3 (12:05→22:44)
[2018-12-10] MEDS: NS 1,000 ML IV SCH ×3 (12:06→22:22)
[2018-12-10] MEDS ORDERED: DIPRIVAN 1% ONE (15:10)
[2018-12-10] MEDS ORDERED: FENTANYL ONE (15:12)
[2018-12-10] MEDS ORDERED: KEFZOL 1 GM/D5W 1 GM/50 ML IVPB ONE (16:14)
[2018-12-10] MEDS ORDERED: XYLOCAINE-MPF 2% ONE (16:41)
[2018-12-10] MEDS ORDERED: QUELICIN (DOSE) ONE (16:41)
[2018-12-10] MEDS ORDERED: ZOFRAN ONE (16:41)
[2018-12-10] MEDS ORDERED: EPHEDRINE ONE (16:44)
--- NOTE | 2018-12-10 17:21 | CONSULTATION ---
DATE OF CONSULTATION: 12/10/2018 CHIEF COMPLAINT: Right flank pain. HISTORY OF PRESENT ILLNESS: This 48-year-old female has a long history of cystine renal lithiasis. She has had multiple stone surgeries and spontaneously passes stones. She is not taking any medication for cystine lithiasis. The patient was last seen in Urology in 2016. She states she has a several day history of increasing right flank pain. She was seen in the emergency room where a CT stone search revealed a small right renal stone and 2 large right distal ureteral stones with significant hydroureteronephrosis down to the stones. PAST MEDICAL HISTORY, SURGICAL HISTORY, SOCIAL HISTORY, AND REVIEW OF SYSTEMS: Documented on her chart. CURRENT MEDICATIONS: Documented on the chart. PHYSICAL EXAMINATION: General: A mildly obese, age apparent, normally developed, white female, oriented in all ways and cooperative. HEENT: Normal for age. Lungs: Clear. Cardiovascular: Regular rate and rhythm. Abdomen: Mildly obese, soft. Direct tenderness in the right side and right flank. No guarding or rebound. Genitourinary: Exam deferred until surgery. Extremities: No clubbing, cyanosis, or edema. Neurologic: No focal deficits. DIAGNOSTIC DATA: CT renal stone search is as noted in the HPI. LABORATORY EVALUATION: White count 10.18, hemoglobin 12.4, hematocrit of 36.9 and platelets are 346,000. Serum electrolytes have a sodium 137, potassium 2.4, chloride 96, bicarbonate 26. BUN 14, creatinine 1.0, serum glucose was 132. Urinalysis has 10 to 20 red cells per high-power field. No stone crystals noted. IMPRESSION: Patient with history of cystine renal lithiasis with 2 large obstructing stones in the right distal ureter. PLAN: Cystoscopic exam right ureteroscopy, laser lithotripsy of stone, basket extraction of fragments, place right double-J stent if needed. The planned procedure, benefits versus risks, possible complications, including, but not limited to, bleeding, infection, not being able to remove the stones, need for further stone surgery was discussed. She seems to understand and desires to proceed. cc: Bc Ross MD
--- NOTE | 2018-12-10 17:36 | HISTORY AND PHYSICAL ---
HISTORY OF PRESENT ILLNESS: In brief, Ms. Del Rio is a 48-year-old lady with a past medical history of [id number] diabetes mellitus, essential hypertension, anxiety, hypothyroidism, and recurrent right-sided cystine stones, who came in with chief complaints of nausea, vomiting, and right flank pain and was found to have distal ureteric at least 3 nephrolithiases causing hydronephrosis, so Urology was consulted and patient was kept under observation for cystoscopy with stent placement. It was already late in the day and patient preferred to stay inside the hospital. She requested she would rather go home tomorrow. Currently, her pain is still there but she is feeling slightly better. VITALS: Temperature 98.4, pulse 73, respiratory rate 18, blood pressure 140/90. She is saturating 93% on room air. PHYSICAL EXAMINATION: GENERAL: Does not appear in acute distress. HEENT: Oral cavity is moist. LUNGS: Air entry bilaterally equal. No wheeze, rhonchi, crackles. CARDIOVASCULAR: S1, S2 normal. No murmur or gallop. ABDOMEN: Soft. There is tenderness in the right upper and lower quadrants. EXTREMITIES: No lower extremity edema. NEUROLOGIC: She is alert and oriented x3. LABS: Suggestive of normal hemoglobin, normal platelet count. Her potassium is 3.4. Her creatinine is 1. She has mild acute kidney injury. There are 10-12 RBCs in the urine. No new microbiological data. IMAGING: Abdomen and pelvis CT had interval development of right-sided hydronephrosis with 3 stones at the ureterovesical junction. ASSESSMENT: 1. Symptomatic ureterovesical junction nephrolithiasis with hydroureter and hydronephrosis. 2. Previous history of recurrent cystine stones. 3. History of hypothyroidism. 4. Essential hypertension. 5. Anxiety. 6. Hyperlipidemia. PLAN: Continue patient on intravenous fluids. We will give her intravenous opioids for pain. Urology has been consulted, awaiting procedure for ureteric stent placement. Plan of care discussed with her and her family member, her mother at bedside. Their questions have been answered. cc: MD BRIAN Covington
[2018-12-10] MEDS ORDERED: TYLENOL ONE (17:43)
--- NOTE | 2018-12-10 18:17 | OPERATIVE NOTE ---
PROCEDURE DATE: 12/10/2018 SURGEON: Bc Ross MD. PREOPERATIVE DIAGNOSIS: Large right distal ureteral stones. POSTOPERATIVE DIAGNOSIS: Large right distal ureteral stones spontaneously passed 1 stone and the other stone at the right ureteral orifice. PROCEDURE PERFORMED: 1. Cystoscopic exam. 2. Cystolitholapaxy. 3. Right ureteroscopy. ANESTHESIA: General via laryngeal mask. FINDINGS: Cystoscopic exam: Urethra-greater than 21 Indian, without stricture. Bladder-normal ureteral orifices with a large stone on the trigone of the bladder and another stone at the right ureteral orifice that was easily knocked out of the ureteral orifice with the cystoscope. The right ureteral orifice was beefy red and was somewhat swollen. exam, normal external female, normal mucosa. No adnexal masses. INDICATION FOR PROCEDURE: This 48-year-old female has a history of cystine renal lithiasis. The patient developed severe right flank pain. A CT stone search revealed a right distal ureteral stone, at the right ureteral orifice and 1 proximal to that causing significant hydroureteronephrosis. DESCRIPTION OF PROCEDURE: After informed consent was obtained from patient and her receiving IV antibiotics, she was taken the main OR cystoscopy room and placed in the supine position. General anesthesia via laryngeal mask was achieved. She was then placed in the low lithotomy position and prepped and draped in the usual sterile fashion for cystoscopic exam. A 21-Indian sheath cystoscope was passed through the patient's urethra into bladder with findings noted above. A 500 micron laser fiber was placed. The laser was set at 8 hertz and 8 garg and both stones were well fragmented. A total of 1397 joules was used. The stone fragments were removed with irrigation and directly grasping them and removing them. These were sent to Pathology for analysis. The cystoscope was removed. A 7-Indian Storz semirigid ureteroscope was advanced through the patient's urethra and into the right ureteral orifice without difficulty and advanced up to the proximal ureter. The ureter was very dilated but no stones or stone fragments were visualized. The ureteroscope was removed. The cystoscope was returned to the bladder. The bladder was irrigated and drained and the cystoscope was removed. Final x-ray was taken that did not reveal any abnormal calcifications overlying the renal shadow or expected course the ureters to the bladder. She tolerated the procedure well. Estimated blood loss was less than 1 mL. She was taken to recovery room in good condition. cc: Bc Ross MD
[2018-12-10] MEDS ORDERED: PERIDEX MT SCH (21:00)
[2018-12-10] MEDS ORDERED: LIPITOR PO SCH (21:00)
[2018-12-11] MEDS: DILAUDID IV PRN ×2 (02:59→05:37)
[2018-12-11] MEDS: ZOFRAN IV PRN (02:59)
[2018-12-11] MEDS: NS 1,000 ML IV SCH (05:53)
[2018-12-11] MEDS ORDERED: PRILOSEC PO SCH (07:00)
[2018-12-11 07:29] LABS: AGAP 8; BUN 9 mg/dL (8-22); CALCIUM 7.1 mg/dL (8.8-10.2); CHLORIDE 99 mmol/L (98-107); COSMO 273; CREATININE 0.8 mg/dL (0.5-0.9); ESTIMATED GFR > 60; GLUCOSE 115 mg/dL (70-104); POTASSIUM 3.7 mmol/L (3.5-5.1); SODIUM 137 mmol/L (136-145); TCO2 30 mmol/L (25-35)
[2018-12-11 07:39] LABS: BASO# 0.02 X1000 (0.0-0.2); BASO% 0.3 % (0.0-0.8); EOS# 0.23 X1000 (0.0-0.7); EOS% 3.3 % (0.0-10.0); HEMATOCRIT 32.2 % (37.0-47.0); HEMOGLOBIN 10.4 g/dL (12.0-16.0); LYMPH# 1.97 X1000 (1.2-3.4); LYMPH% 28.3 % (20.5-51.1); MCHC 32.3 g/dL (33-37); MCV 80.5 FL (81-99); MONO# 0.39 X1000 (0.11-0.59); MONO% 5.6 % (1.7-9.3); MPV 9.2 FL (7.4-10.4); NEUT# 4.35 X1000 (1.4-6.5); NEUT% 62.5 % (42.2-75.2); PLT 295 X1000 (130-400); RDW 13.8 % (11.5-14.5); WBC 6.96 X1000 (4.8-10.8)
[2018-12-11 07:54] VITALS: BP 132/66
[2018-12-11] MEDS ORDERED: TYLENOL PO PRN (08:38)
[2018-12-11] MEDS ORDERED: SINGULAIR PO SCH (09:00)
[2018-12-11] MEDS ORDERED: SYNTHROID PO SCH (09:00)
[2018-12-11] MEDS ORDERED: ZIAC 2.5/6.25 MG PO SCH (09:00)
[2018-12-11] MEDS ORDERED: ZYRTEC PO SCH (09:00)
[2018-12-11] MEDS ORDERED: PRINIVIL PO SCH (09:00)
[2018-12-11] MEDS ORDERED: LEXAPRO PO SCH (09:00)
--- NOTE | 2018-12-11 14:20 | DISCHARGE SUMMARY ---
ADMISSION DATE: 12/10/2018 DISCHARGE DATE: 12/11/2018 DISCHARGE DISPOSITION: Home. DISCHARGE CONDITION: Hemodynamically stable. She is tolerating diet well. She is denying any nausea, vomiting, abdominal pain. DISCHARGE DIAGNOSES: 1. Symptomatic ureterovesical junction nephrolithiasis with hydroureter and hydronephrosis. 2. Previous history of recurrent cystine stones. 3. History of hypothyroidism. 4. Essential hypertension. 5. Anxiety. 6. Hyperlipidemia. CONSULTATIONS AND PROCEDURES DURING HOSPITALIZATION: Dr. Ross from Urology was consulted and the patient underwent cystoscopic exam, cystolitholapaxy and right ureteroscopy with removal of all 3 stones on 12/10/2018. DISCHARGE MEDICATIONS: Atorvastatin 20 mg at nighttime, bisoprolol hydrochlorothiazide 2.5-6.25 mg daily, vitamin D2 ergocalciferol 73108 unit every 7 days, Janumet XR 50-1000 mg tablet 1 tablet b.i.d., escitalopram 10 mg daily, lisinopril 2.5 mg daily, omeprazole 40 mg daily, montelukast 10 mg daily, Levothyroxine 50 mcg daily, cetirizine 10 mg daily. DISCHARGE VITAL SIGNS: Temperature 98.5 degrees, pulse 75, respiratory 20, blood pressure 130/66, saturating 98% on room air. PHYSICAL EXAMINATION: General: Does not appear in acute distress. HEENT: Oral cavity is moist. Lungs: Air entry bilaterally equal. No wheeze, rhonchi or crackles. Cardiovascular: S1, S2 normal. No murmur or gallop. Abdomen: Soft, nontender. Extremity: No lower extremities edema. Neurologic: She is alert and oriented x3. LABORATORY DATA: During hospital admission and discharge. Her WBC was 10.8 on admission which decreased to 6.9, hemoglobin 10.4, platelet 295,000, potassium 3.7, BUN 9, creatinine 0.8. Her kidney dysfunction at the time of admission where her BUN was 14 and creatinine 1 and GFR of 15 had improved significantly. MICROBIOLOGY DURING HOSPITAL ADMISSION: Insignificant. IMAGING DURING HOSPITAL ADMISSION: Abdomen and pelvis CT on December 10 had suggested interval development of right-sided hydronephrosis with at least 3 stones at the ureterovesical junction. HOSPITAL COURSE SUMMARY: Ms. Del Rio is a 48-year-old lady who presented on 12/10/2018 with chief complaints of right flank pain, several episodes of vomiting which started 12 hours prior to presentation, was gradually worsening. She did have prior history of recurrent kidney stones in the past. A CT scan of the abdomen and pelvis in the emergency room had detected at least 3 ureterovesical junction stones causing hydroureter and hydronephrosis. Urology was consulted and patient was admitted under observation. Urology Team took the patient down for cystoscopic exam and her stones were fragmented and removed. No stent was placed. She tolerated the procedure well. She wanted to stay in the hospital overnight. The next day she would be discharged. Her hospital course was otherwise uncomplicated. She was resumed on all of her home medication. TIME SPENT: 25 minutes spent discharging this patient. cc: Nam Kimble MD MTDD
--- NOTE | 2018-12-13 08:25 | Diag Imaging Result Doc PS360 ---
FLUROSCOPY CYSTO - 12/10/2018 INDICATION: BLADDER, LASER LITHO TECHNIQUE: Fluoroscopy and multiple views of the abdomen. The exam was performed by the patient's urologist. Three images were obtained. COMPARISON: CT from 12/10/2018 FINDINGS: There is an IUD in good position. There are no other abnormal findings. IMPRESSION: No acute abnormality. Electronically signed by Ronnie Veronica 12/13/2018 8:23 AM
== END 2018-12-11 10:46 | disposition home or self-care (01) | DRG 670 ==
LOC: ED 05:09 → 4N 05:10
PROVIDERS: ATTEND Internal Medicine